=== PATIENT | male | born 1950 | race Caucasian/White ===

== ENCOUNTER 2021-07-25 07:51 | Day surgery (SDC) | payer MEDICARE ==
[2021-07-20 16:24] VITALS: BMI 31.0
[2021-07-25] MEDS ORDERED: Lidocaine 1% MPF 2 ML VIAL ONE (08:52)
[2021-07-25] MEDS ORDERED: EPINEPHrine 1 MG/ML AMP ONE (09:31)
[2021-07-25] MEDS ORDERED: Bupivacaine 0.25% HCL 30 ML VIAL ONE (09:31)
[2021-07-25] MEDS ORDERED: Fentanyl 100 MCG/2 ML VIAL ONE (09:58)
[2021-07-25] MEDS ORDERED: Lidocaine 1% PF 5 ML VIAL ONE (09:58)
[2021-07-25] MEDS ORDERED: PROPOFOL 20 ML ONE (09:58)
[2021-07-25] MEDS ORDERED: ceFAZolin 2 GM/Dextrose 50 ML IVPB ONE (10:06)
[2021-07-25] MEDS ORDERED: PHENYLEPHRINE-NS 100 MCG/ML 10 ML SYRINGE ONE (10:58)
[2021-07-25] MEDS ORDERED: Ondansetron PF 4 MG/2 ML Vial ONE (11:05)
== END 2021-07-25 12:20 | disposition home or self-care (01) ==
LOC: CSHSDC 07:51
PROVIDERS: ATTEND Surgery
PROC: 05HN33Z Insertion of Infusion Device into Left Internal Jugular Vein, Percutaneous Approach (ICD-10-PCS; principal; 2021-07-25)
DX: C18.6 Malignant neoplasm of descending colon (principal); T82.594A Other mechanical complication of infusion catheter, initial encounter; Z79.899 Other long term (current) drug therapy
CPT/HCPCS: 36561; 36590; 71045; C1788; 88300; J0171; J0690; J1642; J2405; J2704; J3010; S0020